=== PATIENT | male | born 1980 | race Caucasian/White ===

== ENCOUNTER 2016-08-18 13:22 | Emergency (ER) | payer SELFPAY ==
--- NOTE | 2016-08-18 15:43 | EDDOCDS ---
Nurse's Notes [facility] Name: Zachary Rosa Age: 35 yrs Sex: Male : 1980 Arrival Date: 08/18/2016 Time: 13:22 Bed PR Private MD: No Pcp Diagnosis: Prepatellar bursitis, right knee Presentation: 08/18 13:26 Presenting complaint: Patient states: that he has pain in his R knee that started ms18 approx 2 weeks ago. Pt states that he notices a bulge on the lateral part of his R knee. Adult Sepsis Screening: The patient does not have new or worsening altered mentation. Patient's respiratory rate is less than 22. Systolic blood pressure is greater than 100. Patient has a qSOFA score of 0- Negative Sepsis Screen. Suicide/Homicide risk assessment- the patient denies having any suicidal and/or homicidal ideations and does not present with any other emotional, behavioral or mental health complaints. Status: Patient is not a field servicer or dependent. Transition of care: patient was not received from another setting of care. 13:26 Acuity: JATIN Level 4 ms18 13:26 Method Of Arrival: Walkin/Carried/Asstd ms18 Triage Assessment: 13:28 General: Appears in no apparent distress, comfortable, Behavior is appropriate for age, ms18 cooperative. Pain: Location: lateral aspect of right knee Pain currently is 2 out of 10 on a pain scale. Aggravated by putting pressure on his knee. HIV screening NA for this visit Offered previously. Neurological: No deficits noted. Respiratory: No deficits noted. Derm: Skin is pink, warm & dry. Historical: - Allergies: no known allergies; - Home Meds: 1. none - PMHx: none; - PSHx: Cystectomy; - Social history: Smoking status: Patient uses tobacco products, current every day smoker. No barriers to communication noted, The patient speaks fluent [place]. - Family history: Not pertinent. - : The pt / caregiver states he / she is not on anticoagulants. Home medication list is obtained from the patient. - Exposure Risk Screening:: None identified. Screenin:40 Screening information is obtained from the patient. Fall risk: No risks identified. mlb1 Assistance ADL's: requires no assistance with activities of daily living. Abuse/DV Screen: The patient / caregiver reports he/she is: not in a situation that causes fear, pain or injury. Nutritional screening: No deficits noted. Advance Directives: Currently, there is no health care proxy. home support is adequate. Assessment: 15:38 General: Appears in no apparent distress, Behavior is appropriate for age, cooperative. mlb1 Pain: Location: lateral aspect of right knee Pain currently is 2 out of 10 on a pain scale. Musculoskeletal: Range of motion intact in all extremities. Vital Signs: 13:24 BP 143 / 70; Pulse 81; Resp 18 S; Temp 97.9(O); Pulse Ox 97% on R/A; Weight 104.33 kg gr2 (R); Height 5 ft. 7 in. (170.18 cm) (R); Pain 3/10; 13:24 Body Mass Index 36.02 (104.33 kg, 170.18 cm) gr2 Vitals: 13:24 Log In Time: August 18, 2016 at 13:24. gr2 ED Course: 13:24 Patient visited by Kate Winslow. gr2 13:24 No Pcp is Private Physician. gr2 13:24 Patient moved to Waiting gr2 13:25 Patient visited by Kate Winslow. gr2 13:25 Patient moved to Pre RCE gr2 13:28 Triage Initiated ms18 14:18 Patient moved to Triage 3 ms18 14:26 Silvino Howe PA-C is PHCP. cc10 14:26 Elfego Mendez MD is Attending Physician. cc10 14:26 Patient visited by Silvino Howe PA-C. cc10 14:26 Patient visited by Silvino Howe PA-C. cc10 14:33 Patient moved to TR1 mlb1 15:07 Patient moved to PR1 / 25 mlb1 15:08 Patient moved to TR1 mlb1 15:09 Patient moved to Radiology bh4 15:11 Patient moved to PR1 / 25 mlb1 15:22 [facility] is Referral Physician. cc10 15:41 No IV's were initiated during this patient's visit. No procedures done that require mlb1 assistance. 15:42 Patient visited by Gaudencio Meza RN. mlb1 15:42 The patient / caregiver is instructed regarding the plan of care and ED course. mlb1 Order Results: There are currently no results for this order. Outcome: 15:22 Discharge ordered by Provider. cc10 15:41 Discharge Assessment: Patient awake, alert and oriented x 3. No cognitive and/or mlb1 functional deficits noted. Patient verbalized understanding of disposition instructions. patient administered narcotics - no. The following High Risk Discharge criteria are identified: None. Discharged to home ambulatory. Condition: good. Discharge instructions given to patient, Instructed on discharge instructions, follow up and referral plans. Demonstrated understanding of instructions, medications, Prescriptions given X 2. No special radiology studies were completed. Property sent home with patient. 15:42 Patient left the ED. mlb1 Signatures: Gaudencio Meza RN RN mlb1 Tomeka Hough 4 Kate Winslow 2 Silvino Howe, PA-C PA-Stefani cc10 Cathy Pedro,RN RN ms18 MTDD
--- NOTE | 2016-08-18 15:43 | EDDOCDS ---
Physician Documentation [facility] Name: Zachary Rosa Age: 35 yrs Sex: Male : 1980 Arrival Date: 08/18/2016 Time: 13:22 Bed PR Private MD: No Pcp Disposition: 08/18/16 15:22 Discharged to Home/Self Care. Impression: Prepatellar bursitis, right knee. - Condition is Stable. - Discharge Instructions: Bursitis. - Prescriptions for Naprosyn 500 mg Oral Tablet - take 1 tablet by ORAL route 2 times per day take with food; 30 tablet. Prednisone 20 mg Oral Tablet - take 1 tablet by ORAL route once daily for 3 days; 3 tablet. - Medication Reconciliation form. - Follow up: [facility]; When: Call to arrange an appointment; Reason: Wound/Symptom Recheck, Recheck today's complaints, Worsening of conditions, Continuance of care. - Problem is an ongoing problem. - Symptoms are unchanged. Historical: - Allergies: no known allergies; - Home Meds: 1. none - PMHx: none; - PSHx: Cystectomy; - Social history: Smoking status: Patient uses tobacco products, current every day smoker. No barriers to communication noted, The patient speaks fluent Libyan. - Family history: Not pertinent. - : The pt / caregiver states he / she is not on anticoagulants. Home medication list is obtained from the patient. - Exposure Risk Screening:: None identified. Vital Signs: 08/18 13:24 BP 143 / 70; Pulse 81; Resp 18 S; Temp 97.9(O); Pulse Ox 97% on R/A; Weight 104.33 kg / gr2 230.01 lbs (R); Height 5 ft. 7 in. (170.18 cm) (R); Pain 3/10; 13:24 Body Mass Index 36.02 (104.33 kg, 170.18 cm) gr2 MDM: 14:35 Knee, Complete Ordered. EDMS 15:21 Financial registration complete. lg Signatures: Dispatcher [employer] EDKS Sincere Barillas, Radhames Reg lg Gaudencio Meza RN RN mlb1 Silvino Howe PANylaC PA-C cc10 Cathy Pedro RN RN ms18 MTDD
--- NOTE | 2016-08-18 15:58 | REP ---
RIGHT KNEE, FIVE VIEWS: HISTORY: Trauma. There is no acute fracture or dislocation. The joint spaces are normal in appearance. An ossified density is present superior to the fibula. This may represent ligamentous or tendon calcification or an old avulsion fracture fragment. IMPRESSION: There is no acute fracture or dislocation. Signed by Shaw Ba MD 08/18/2016 03:58 P
--- NOTE | 2016-08-20 16:42 | EDDOCDS ---
Nurse's Notes [facility] Name: Zachary Rosa Age: 35 yrs Sex: Male : 1980 Arrival Date: 08/18/2016 Time: 13:22 Bed PR Private MD: No Pcp Diagnosis: Prepatellar bursitis, right knee Presentation: 08/18 13:26 Presenting complaint: Patient states: that he has pain in his R knee that started ms18 approx 2 weeks ago. Pt states that he notices a bulge on the lateral part of his R knee. Adult Sepsis Screening: The patient does not have new or worsening altered mentation. Patient's respiratory rate is less than 22. Systolic blood pressure is greater than 100. Patient has a qSOFA score of 0- Negative Sepsis Screen. Suicide/Homicide risk assessment- the patient denies having any suicidal and/or homicidal ideations and does not present with any other emotional, behavioral or mental health complaints. Status: Patient is not a member services coordinator or dependent. Transition of care: patient was not received from another setting of care. 13:26 Acuity: JATIN Level 4 ms18 13:26 Method Of Arrival: Walkin/Carried/Asstd ms18 Triage Assessment: 13:28 General: Appears in no apparent distress, comfortable, Behavior is appropriate for age, ms18 cooperative. Pain: Location: lateral aspect of right knee Pain currently is 2 out of 10 on a pain scale. Aggravated by putting pressure on his knee. HIV screening NA for this visit Offered previously. Neurological: No deficits noted. Respiratory: No deficits noted. Derm: Skin is pink, warm & dry. Historical: - Allergies: no known allergies; - Home Meds: 1. none - PMHx: none; - PSHx: Cystectomy; - Social history: Smoking status: Patient uses tobacco products, current every day smoker. No barriers to communication noted, The patient speaks fluent [place]wand[place]. - Family history: Not pertinent. - : The pt / caregiver states he / she is not on anticoagulants. Home medication list is obtained from the patient. - Exposure Risk Screening:: None identified. Screenin:40 Screening information is obtained from the patient. Fall risk: No risks identified. mlb1 Assistance ADL's: requires no assistance with activities of daily living. Abuse/DV Screen: The patient / caregiver reports he/she is: not in a situation that causes fear, pain or injury. Nutritional screening: No deficits noted. Advance Directives: Currently, there is no health care proxy. home support is adequate. Assessment: 15:38 General: Appears in no apparent distress, Behavior is appropriate for age, cooperative. mlb1 Pain: Location: lateral aspect of right knee Pain currently is 2 out of 10 on a pain scale. Musculoskeletal: Range of motion intact in all extremities. Vital Signs: 13:24 BP 143 / 70; Pulse 81; Resp 18 S; Temp 97.9(O); Pulse Ox 97% on R/A; Weight 104.33 kg gr2 (R); Height 5 ft. 7 in. (170.18 cm) (R); Pain 3/10; 13:24 Body Mass Index 36.02 (104.33 kg, 170.18 cm) gr2 Vitals: 13:24 Log In Time: August 18, 2016 at 13:24. gr2 ED Course: 13:24 Patient visited by Kate Winslow. gr2 13:24 No Pcp is Private Physician. gr2 13:24 Patient moved to Waiting gr2 13:25 Patient visited by Kate Winslow. gr2 13:25 Patient moved to Pre RCE gr2 13:28 Triage Initiated ms18 14:18 Patient moved to Triage 3 ms18 14:26 Silvino Howe PA-C is PHCP. cc10 14:26 Elfego Mendez MD is Attending Physician. cc10 14:26 Patient visited by Silvino Howe PA-C. cc10 14:26 Patient visited by Silvino Howe PA-C. cc10 14:33 Patient moved to TR1 mlb1 15:07 Patient moved to PR1 / 25 mlb1 15:08 Patient moved to TR1 mlb1 15:09 Patient moved to Radiology bh4 15:11 Patient moved to PR1 / 25 mlb1 15:22 [facility] is Referral Physician. cc10 15:41 No IV's were initiated during this patient's visit. No procedures done that require mlb1 assistance. 15:42 Patient visited by Gaudencio Meza RN. mlb1 15:42 The patient / caregiver is instructed regarding the plan of care and ED course. mlb1 15:52 [facility] Payment Agreement was scanned into [employer] and attached to record. 16:37 Knee, Complete Returned. EDLA 08/19 10:39 T-Sheet-- Draft Copy was scanned into [employer] and attached to record. gb Order Results: Radiology Order: Knee, Complete Test: Knee, Complete REASON FOR EXAMINATION: Trauma; RIGHT KNEE, FIVE VIEWS:; ; HISTORY: Trauma.; ; There is no acute fracture or dislocation. The joint spaces are normal in; appearance. An ossified density is present superior to the fibula. This may; represent ligamentous or tendon calcification or an old avulsion fracture; fragment.; ; IMPRESSION:; ; There is no acute fracture or dislocation.; ; ; Signed by; Shwa Ba MD 08/18/2016 03:58 P; Outcome: 08/18 15:22 Discharge ordered by Provider. cc10 15:41 Discharge Assessment: Patient awake, alert and oriented x 3. No cognitive and/or mlb1 functional deficits noted. Patient verbalized understanding of disposition instructions. patient administered narcotics - no. The following High Risk Discharge criteria are identified: None. Discharged to home ambulatory. Condition: good. Discharge instructions given to patient, Instructed on discharge instructions, follow up and referral plans. Demonstrated understanding of instructions, medications, Prescriptions given X 2. No special radiology studies were completed. Property sent home with patient. 15:42 Patient left the ED. mlb1 Signatures: Dispatcher [facility] EDLA Delaney Ruvalcaba, Reg Reg gb AnishSincere thompson, Reg Reg lg Gaudencio Meza RN RN mlb1 Tomeka Hough 4 Kate Winslow 2 Silvino Howe, PACyn PA-C cc10 Cathy PedroRN RN ms18 Chart Complete MTDD
--- NOTE | 2016-08-20 16:42 | EDDOCDS ---
Physician Documentation [facility] Name: Zachary Rosa Age: 35 yrs Sex: Male : 1980 Arrival Date: 08/18/2016 Time: 13:22 Bed PR Private MD: No Pcp Disposition: 08/18/16 15:22 Discharged to Home/Self Care. Impression: Prepatellar bursitis, right knee. - Condition is Stable. - Discharge Instructions: Bursitis. - Prescriptions for Naprosyn 500 mg Oral Tablet - take 1 tablet by ORAL route 2 times per day take with food; 30 tablet. Prednisone 20 mg Oral Tablet - take 1 tablet by ORAL route once daily for 3 days; 3 tablet. - Medication Reconciliation form. - Follow up: [facility]; When: Call to arrange an appointment; Reason: Wound/Symptom Recheck, Recheck today's complaints, Worsening of conditions, Continuance of care. - Problem is an ongoing problem. - Symptoms are unchanged. Historical: - Allergies: no known allergies; - Home Meds: 1. none - PMHx: none; - PSHx: Cystectomy; - Social history: Smoking status: Patient uses tobacco products, current every day smoker. No barriers to communication noted, The patient speaks fluent Egyptian. - Family history: Not pertinent. - : The pt / caregiver states he / she is not on anticoagulants. Home medication list is obtained from the patient. - Exposure Risk Screening:: None identified. Vital Signs: 08/18 13:24 BP 143 / 70; Pulse 81; Resp 18 S; Temp 97.9(O); Pulse Ox 97% on R/A; Weight 104.33 kg / gr2 230.01 lbs (R); Height 5 ft. 7 in. (170.18 cm) (R); Pain 3/10; 13:24 Body Mass Index 36.02 (104.33 kg, 170.18 cm) gr2 MDM: 14:35 Knee, Complete Ordered. EDMS 15:21 Financial registration complete. lg 15:52 [facility] Payment Agreement was scanned into [employer] and attached to record. lg 08/19 10:39 T-Sheet-- Draft Copy was scanned into [employer] and attached to record. gb Signatures: [facility] ED[facility] Delaney Ruvalcaba, Reg Reg gb Sincere Barillas, Reg Reg lg Gaudencio Meza RN RN mlb1 Silvino Howe PANylaC PANylaC cc10 Cathy PedroRN RN ms18 The chart was reviewed and I authenticate all verbal orders and agree with the evaluation and treatment provided.Attachments: 08/18 15:52 [facility] Payment Agreement lg 08/19 10:39 T-Sheet-- Draft Copy gb Chart Complete MTDD
--- NOTE | 2016-08-20 16:42 | EDDOCDS ---
Physician Documentation [facility] Name: Zachary Rosa Age: 35 yrs Sex: Male : 1980 Arrival Date: 08/18/2016 Time: 13:22 Bed PR Private MD: No Pcp Disposition: 08/18/16 15:22 Discharged to Home/Self Care. Impression: Prepatellar bursitis, right knee. - Condition is Stable. - Discharge Instructions: Bursitis. - Prescriptions for Naprosyn 500 mg Oral Tablet - take 1 tablet by ORAL route 2 times per day take with food; 30 tablet. Prednisone 20 mg Oral Tablet - take 1 tablet by ORAL route once daily for 3 days; 3 tablet. - Medication Reconciliation form. - Follow up: [facility]; When: Call to arrange an appointment; Reason: Wound/Symptom Recheck, Recheck today's complaints, Worsening of conditions, Continuance of care. - Problem is an ongoing problem. - Symptoms are unchanged. Historical: - Allergies: no known allergies; - Home Meds: 1. none - PMHx: none; - PSHx: Cystectomy; - Social history: Smoking status: Patient uses tobacco products, current every day smoker. No barriers to communication noted, The patient speaks fluent Czech. - Family history: Not pertinent. - : The pt / caregiver states he / she is not on anticoagulants. Home medication list is obtained from the patient. - Exposure Risk Screening:: None identified. Vital Signs: 08/18 13:24 BP 143 / 70; Pulse 81; Resp 18 S; Temp 97.9(O); Pulse Ox 97% on R/A; Weight 104.33 kg / gr2 230.01 lbs (R); Height 5 ft. 7 in. (170.18 cm) (R); Pain 3/10; 13:24 Body Mass Index 36.02 (104.33 kg, 170.18 cm) gr2 MDM: 14:35 Knee, Complete Ordered. EDMS 15:21 Financial registration complete. lg 15:52 [facility] Payment Agreement was scanned into [employer] and attached to record. lg 08/19 10:39 T-Sheet-- Draft Copy was scanned into [employer] and attached to record. gb Signatures: [facility] ED[facility] Delaney Ruvalcaba, Reg Reg gb Sincere Barillas, Reg Reg lg Gaudencio Meza RN RN mlb1 Silvino Howe PANylaC PANylaC cc10 Cathy PedroRN RN ms18 The chart was reviewed and I authenticate all verbal orders and agree with the evaluation and treatment provided.Attachments: 08/18 15:52 [facility] [place] Agreement lg 08/19 10:39 T-Sheet-- Draft Copy gb Chart Complete MTDD
== END 2016-08-18 15:42 | disposition home or self-care (01) ==
LOC: M ED 13:22
DX: M70.51 Other bursitis of knee, right knee (principal); Z72.0 Tobacco use

== ENCOUNTER → 2019-12-09 | Outpatient (CLI) | payer BC, OTHER | LOC: M LABSMTC 11:03 | PROVIDERS: ATTEND Physician Assistant Surgical | DX: Z03.818 Encounter for observation for suspected exposure to other biological agents ruled out (principal); Z11.59 Encounter for screening for other viral diseases ==

== ENCOUNTER → 2022-09-17 | Outpatient (CLI) | payer BC, OTHER ==
[2022-09-18 23:07] LABS: TESTOSTERONE FREE (DIRECT) 9.6 pg/mL (6.8-21.5)
== END ==
LOC: M WUC 08:07
PROVIDERS: ATTEND Physician Assistant
DX: F52.21 Male erectile disorder (principal)